=== PATIENT | male | born 1990 | race Two or more races ===

== ENCOUNTER 2017-01-19 21:38 | Emergency (ER) | payer OTHER ==
--- NOTE | ~2017-01-19 | CT4 ---
[facility] A Service of [facility] RADIOLOGY TEXT RESULTS PATIENT: LUKE MORENO LOCATION: SED : 86 UNIT #: [id number] AGE: [address]: MARTIN BARAHONA SEX: M ORDER DR: [id number] [address] [address] [id number] MR#: [id number] Acc #: [id number] NAME: LUKE MORENO : 1990 SEX: M STUDY DATE/TIME: 01/19/2017 23:09 UNIT: SED ROOM: STUDY DESCRIPTION: CT Abd and Pelv Wo Cont Attending Physician: Martin Barahnoa Ordering Physician: Martin Barahona Primary Care Physician: Renetta Primary Care Physician MEDICAL IMAGING REPORT This report is preliminary unless electronic signature is present. EXAM CT abdomen and pelvis without contrast HISTORY Left flank pain for 4-5 days which is worsening today, suspected kidney stone. Previous history of kidney stones. COMPARISON 12/12/2015 TECHNIQUE Axial 3 mm images were obtained through the abdomen and pelvis without IV or oral contrast. This CT exam was performed with one or more of the following radiation dose reduction techniques: automatic control, adjustment of mA and/or kV according to patient size, and iterative reconstruction. FINDINGS Lung bases are clear. The liver, spleen, pancreas, adrenal glands and aorta are normal. The gallbladder appears to contain a small 8 mm stone. The right kidney shows mild hydronephrosis and the right ureter is slightly dilated but no definite stone is identified. The left kidney has 4 mm and a 5 mm stone which are nonobstructing. There is no hydronephrosis. The left ureter is normal. Bladder is normal. There is no adenopathy. The bowel is normal. The appendix is normal. Prostate gland is normal. The bones are unremarkable. IMPRESSION 1. There are 2 nonobstructing stones in the left kidney measuring about 4-5 mm in diameter. 2. There seems to be some mild prominence of the right renal pelvis and proximal ureter but no ureteral stones are identified in either side. [facility] A Service of [facility] RADIOLOGY TEXT RESULTS PATIENT: LUKE MORENO LOCATION: SED : [birth year] UNIT #: [id number] AGE: [address]: MARTIN BARAHONA SEX: M ORDER DR: 3. Small gallstone appears to be present. Dictated by... Alex Willis M.D. THIS IS AN ELECTRONICALLY VERIFIED REPORT Alex Willis M.D. at 01/20/2017 5:54 AM JOVITA/sandra TD: 01/20/2017 05:44 JOB #: [id number] MEDICAL IMAGING REPORT Page 1 of 1
[~2017-01-19 21:38] MED LIST: ACETAMINOPHEN500 M3 PO; ALLEGRA PO; AMOXICILLIN500 M1; BACTRIM DS TABL1 TA1 PO; BLOOD PRESSURE PO; CIPRO PO; CIPRO250 MG PO; DICLOFENAC PO; FLEXERIL10 M1 PO; FLOMAX0.4 M1 PO; FLOMAX0.4 MG PO; HYDROCODON-ACE1 EACH PO; IBUPROFEN25 GM; KETOPROFEN PO; LORTAB 5-325 M1 EACH PO; LORTAB 5/500 TA1 TA1 PO; LORTAB 5/500 TA1 TA2 PO; MOTRIN600 M1 PO; NAPROSYN500 MG PO; NEOMYCIN-POLYMY10 M1 OT; NO MEDICATIONS; NORCO 10-325 TA1 TAB PO; NORVASC2.5 MG PO; PEN-VEE K PO; PEPCID PO; PERCOCET5/325 PO; PHENERGAN PO; PHENERGAN25 M1 PO; PHENERGAN25 MG PO; PRILOSEC; PYRIDIUM100 MG PO; RANITIDINE HCL300 M1 PO; ROBAXIN500 MG PO; TYLENOL #3 PO; TYLOX 5/500 CAP1 CAP PO; UNKNOWN BP MED PO; VESICARE PO; VICODIN 5/1 TAB 5/50 PO; VICODIN 5/500 T1 TAB PO; VOLTAREN50 MG PO; ZOFRAN ODT4 MG/UDTAB PO; ZOFRAN PO
[2017-01-19 22:22] LABS: BASOPHIL# 0.1 X10e3 (0-0.3); BASOPHIL% 1.4 % (0-2.5); EOSINOPHIL# 0.4 X10e3 (0-0.7); EOSINOPHIL% 4.5 % (0.0-7.0); HEMATOCRIT 45.2 % (38.0-50.0); HEMOGLOBIN 15.8 gm/dL (13.0-16.0); LYMPHOCYTE# 2.7 X10e3 (1.0-3.5); LYMPHOCYTE% 33.4 % (17.0-45.0); MEAN CORPUSCULAR HEMOGLOBIN 28.4 PG (28-34); MEAN CORPUSCULAR HGB CONC 35.1 g/dL (30-36); MEAN PLATELET VOLUME 9.4 FL (6.5-11.5); MONOCYTE# 0.5 X10e3 (0-1.0); MONOCYTE% 5.7 % (3.0-12.0); NEUTROPHIL# 4.5 X10e3 (1.5-7.1); PLATELET COUNT 176 X10e3 (140-420); RED BLOOD COUNT 5.58 X10e (3.90-5.60); RED CELL DISTRIBUTION WIDTH 13.8 % (11.0-15.5); WHITE BLOOD COUNT 8.2 X10e3 (4.0-10.5)
[2017-01-19 22:23] LABS: DIFF IND NO
[2017-01-19 22:25] LABS: URINE SOURCE CLEAN CATCH
[2017-01-19 22:27] LABS: URINE APPEARANCE CLEAR; URINE BILIRUBIN NEG (NEG); URINE BLOOD NEG (NEG); URINE COLOR YELLOW; URINE GLUCOSE NEG (NORM); URINE KETONE NEG (NEG); URINE LEUKOCYTE ESTERASE NEG (NEG); URINE NITRATE NEG (NEG); URINE PROTEIN NEG (NEG); URINE UROBILINOGEN 0.2 MG/DL (NORM)
[2017-01-19 22:33] LABS: MICRO INDICATED? NO
[2017-01-19 22:41] LABS: CALCIUM SERUM 9.2 mg/dL (8.4-10.2); POTASSIUM 3.4 mmol/L (3.5-5.1)
== END 2017-01-20 | disposition home or self-care (01) ==
LOC: SED 21:38
PROVIDERS: Physician Assistant
DX: R10.9 Unspecified abdominal pain (principal); R11.0 Nausea; I10 Essential (primary) hypertension
CPT/HCPCS: 36415; 74176; 80048; 81003; 85025; 96361; 96374; 96375; 99284; J1885; J2405